=== PATIENT | male | born 1950 | race Caucasian/White ===

== ENCOUNTER 2018-01-20 21:10 | Emergency (ER) | payer OTHER ==
[~2018-01-20] VITALS: Ht 182.9 cm; Wt 77.1 kg
--- NOTE | ~2018-01-20 | EKG ---
[place] [address] [facility] 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
[~2018-01-20 21:10] MED LIST: AMBIEN 10 MG TA10 MG PO; BACTRIM DS TAB1 EACH PO; CIALIS20 MG PO; CLONAZEPAM 1 MG1 M1 PO; FERROUS SULFAT140 MG PO; FLONASE 0.05%50 MCG NASAL; IBUPROFEN 200200 M1 PO; NEURONTIN800 MG PO; OMEPRAZOLE 20 M20 M1 PO; PROSCAR 5MG TABL5 M1 PO; REQUIP XL6 MG PO; REQUIP0.5 MG PO; SINGULAIR 10 MG10 M1 PO; TRAMADOL 50 MG50 MG PO; ZOFRAN4 MG PO
[2018-01-20] MEDS ORDERED: OXYCONTIN10 M1 PO (21:20)
[2018-01-20] MEDS ORDERED: MIRAPEX0.75 MG PO (21:21)
[2018-01-20] MEDS ORDERED: DESYREL150 MG PO (21:23)
[2018-01-20] MEDS ORDERED: VITAMIN D1000 UNI1 PO (21:23)
[2018-01-20] MEDS ORDERED: CHONDROITIN S5000 GM PO (21:24)
[2018-01-20] MEDS ORDERED: RESTASIS1 EACH OPHTHALMIC (21:24)
[2018-01-20] MEDS ORDERED: LAMISIL250 MG PO (21:25)
[2018-01-20 21:29] LABS: ABSOLUTE NEUTROPHILS 2.3 thou/uL (1.4-8.2); BASOPHILS 0.4 % (0.0-2.0); EOSINOPHILS 1.4 % (0.0-3.0); HEMATOCRIT 38.1 % (42.0-52.0); HEMOGLOBIN 13.5 gm/dL (14.0-18.0); LYMPHOCYTES 38.4 % (24.0-44.0); MCH 35.1 pg (26.0-34.0); MCHC 35.6 g/dL (28.0-37.0); MCV 98.6 fL (80.0-100.0); MONOCYTES 9.4 % (1.0-8.0); PLATELET COUNT 221 thou/uL (150-400); POLYS 50.4 % (36.0-66.0); RBC 3.86 mil/uL (4.50-6.00); RDW 13.4 % (10.5-14.5); WBC 4.6 thou/uL (4.0-11.0)
[2018-01-20 21:34] LABS: ANION GAP 8 mmol/L (7-16); BUN 20 mg/dL (7-18); CALCIUM 9.4 mg/dL (8.5-10.1); CHLORIDE 103 mmol/L (98-107); CO2 26 mmol/L (21-32); CREATININE 1.1 mg/dL (0.7-1.3); GLUCOSE 100 mg/dL (74-106); POTASSIUM 3.8 mmol/L (3.5-5.1); SODIUM 137 mmol/L (136-145)
[2018-01-20 21:43] LABS: TROPONIN-I < 0.04 ng/mL (<0.06)
[2018-01-20] MEDS ORDERED: NORCO 5-325 TA1 EACH PO (22:34)
[2018-01-20 23:21] VITALS: BP 132/73
== END 2018-01-20 23:21 | disposition home or self-care (01) ==
LOC: ER 21:10
PROVIDERS: Emergency Medicine
DX: M54.12 Radiculopathy, cervical region (principal); R42 Dizziness and giddiness; G25.81 Restless legs syndrome; Z88.1 Allergy status to other antibiotic agents; Z88.5 Allergy status to narcotic agent; Z87.891 Personal history of nicotine dependence